=== PATIENT | male | born 1955 ===

== ENCOUNTER 2018-08-02 09:54 | Outpatient (CLI) | payer OTHER | END 2018-08-02 10:21 | disposition home or self-care (01) | LOC: RAD 09:54 | DX: J44.9 Chronic obstructive pulmonary disease, unspecified (principal) ==

== ENCOUNTER 2019-09-01 08:41 | Outpatient (CLI) | payer OTHER | END 2019-09-01 09:32 | disposition home or self-care (01) | LOC: NUCLEAR 08:41 | DX: I87.2 Venous insufficiency (chronic) (peripheral) (principal) ==

== ENCOUNTER 2019-09-05 08:26 | Outpatient (CLI) | payer OTHER | END 2019-09-05 09:29 | disposition home or self-care (01) | LOC: NUCLEAR 08:26 | DX: I73.9 Peripheral vascular disease, unspecified (principal) ==

== ENCOUNTER 2020-11-07 09:56 | Outpatient (CLI) | payer OTHER | END 2020-11-08 10:08 | disposition home or self-care (01) | LOC: SONOGRAMA 09:56 → MAMO-SONO 11-21 08:15 | PROVIDERS: ATTEND Urology | DX: N20.0 Calculus of kidney (principal) ==

== ENCOUNTER → 2020-12-04 | Outpatient (CLI) | payer OTHER | END | disposition home or self-care (01) | LOC: TOM 10:00 | PROVIDERS: ATTEND Urology | DX: N20.0 Calculus of kidney (principal) ==